=== PATIENT | male | born 1940 | race Two or more races ===

== ENCOUNTER 2022-09-05 10:05 | Emergency (ER) | payer OTHER ==
[~2022-09-05] VITALS: Ht 170.2 cm; Wt 81.6 kg
[2022-09-05] MEDS ORDERED: TOPROL XL100 M1 (10:10)
[2022-09-05] MEDS ORDERED: TAMS0.4C (10:10)
[2022-09-05] MEDS ORDERED: ATACAND HCT 321 EACH (10:11)
[2022-09-05] MEDS ORDERED: ASA81 MG (10:11)
== END 2022-09-05 15:39 | disposition home or self-care (01) ==
LOC: ER 10:05
DX: M43.16 Spondylolisthesis, lumbar region (principal); M54.16 Radiculopathy, lumbar region; Z96.651 Presence of right artificial knee joint; I10 Essential (primary) hypertension